=== PATIENT | male | born 1985 | race Caucasian/White ===

== ENCOUNTER 2018-10-01 15:22 | Emergency (ER) | payer BC ==
[2018-10-01] MEDS ORDERED: EPINEPHrine 1 MG/1 ML Amp ONE (15:33)
[2018-10-01] MEDS ORDERED: EPINEPHrine 1 MG/1 ML Amp SUBCUT ONE ×2 (15:35→16:14)
[2018-10-01] MEDS ORDERED: methylPREDNISolone Sodium Succinate 40 MG/1 ML SDV IM ONE (16:30)
--- NOTE | 2018-10-02 11:01 | EDM.PDOC ---
ED HPI GENERAL MEDICAL PROBLEM - General Chief Complaint: Bite:Animal, Insect Stated Complaint: bug bite, lip swelling Time Seen by Provider: 10/01/18 15:25 Source of Information: Reports: Patient - History of Present Illness INITIAL COMMENTS - FREE TEXT/NARRATIVE: Patient presented to ER complaining of a insect bite on lip. The lip was swollen. The right cheek was also swollen. Patient also had generalized hives. No respiratory stress noted. Patient came to ER to be evaluated. Onset: Sudden Severity: Moderate - Related Data Allergies Allergy/AdvReac Type Severity Reaction Status Date / Time No Known Allergies Allergy Verified 10/01/18 15:30 Past Medical History - Infectious Disease History Infectious Disease History: Reports: Chicken Pox, Shingles Social & Family History - Tobacco Use Smoking Status *Q: Never Smoker Second Hand Smoke Exposure: No - Caffeine Use Caffeine Use: Reports: Coffee - Recreational Drug Use Recreational Drug Use: No ED ROS GENERAL - Review of Systems Review Of Systems: See Below Constitutional: Reports: No Symptoms, Weight Gain Respiratory: Reports: No Symptoms Cardiovascular: Reports: No Symptoms Endocrine: Reports: No Symptoms GI/Abdominal: Reports: No Symptoms : Reports: No Symptoms Musculoskeletal: Reports: No Symptoms Skin: Reports: Other (generalized hives ; lip swollen/right cheek swollen) Neurological: Reports: No Symptoms Psychiatric: Reports: No Symptoms Hematologic/Lymphatic: Reports: No Symptoms Immunologic: Reports: No Symptoms ED EXAM, SKIN/RASH Exam: See Below Exam Limited By: No Limitations General Appearance: Alert, WD/WN, No Apparent Distress Ears: Normal External Exam, Normal Canal, Hearing Grossly Normal, Normal TMs Nose: Normal Inspection, Normal Mucosa, No Blood Throat/Mouth: Normal Inspection, Normal Lips, Normal Teeth, Normal Gums, Normal Oropharynx, Normal Voice, No Airway Compromise Head: Atraumatic, Normocephalic Neck: Normal Inspection, Supple, Non-Tender, Full Range of Motion Respiratory/Chest: No Respiratory Distress, Lungs Clear, Normal Breath Sounds, No Accessory Muscle Use, Chest Non-Tender Cardiovascular: Normal Peripheral Pulses, Regular Rate, Rhythm, No Edema, No Gallop, No JVD, No Murmur, No Rub GI/Abdominal: Normal Bowel Sounds, Soft, Non-Tender, No Organomegaly, No Distention, No Abnormal Bruit, No Mass Back Exam: Normal Inspection, Full Range of Motion, NT Extremities: Normal Inspection, Normal Range of Motion, Non-Tender, No Pedal Edema, Normal Capillary Refill Neurological: Alert, Oriented, CN II-XII Intact, Normal Cognition, Normal Gait, Normal Reflexes, No Motor/Sensory Deficits Skin: Other (generalized hives ; lip swollen/right cheek swollen) Location, Skin: Other (lip/right cheek ) Associated features: Swelling Course - Vital Signs Last Recorded V/S: Last Vital Signs Temp 98 F 10/01/18 15:23 Pulse 112 H 10/01/18 15:23 Resp 20 10/01/18 15:23 BP 141/78 H 10/01/18 15:23 Pulse Ox 96 10/01/18 15:23 - Orders/Labs/Meds Meds: Medications Discontinued Medications Generic Name Dose Route Start Last Admin Trade Name Torie PRN Reason Stop Dose Admin Epinephrine HCl Confirm 10/01/18 15:33 10/01/18 15:45 Adrenalin Administered 10/01/18 15:34 Not Given Dose 1 mg .ROUTE .STK-MED ONE Epinephrine HCl 0.3 mg 10/01/18 15:35 10/01/18 15:45 Adrenalin SUBCUT 10/01/18 15:36 0.3 mg ONETIME ONE Administration Epinephrine HCl 0.3 mg 10/01/18 16:14 10/01/18 16:15 Adrenalin SUBCUT 10/01/18 16:15 0.3 mg ONETIME ONE Administration Methylprednisolone Sodium Succinate 40 mg 10/01/18 16:30 10/01/18 16:40 Solu-Medrol IM 10/01/18 16:31 40 mg ONETIME ONE Administration Departure - Departure Time of Disposition: 17:50 Disposition: Home, Self-Care 01 Clinical Impression: Insect bite Qualifiers: Encounter type: initial encounter Site of insect bite: unspecified site Qualified Code(s): W57.XXXA - Bitten or stung by nonvenomous insect and other nonvenomous arthropods, initial encounter - Discharge Information *PRESCRIPTION DRUG MONITORING PROGRAM REVIEWED*: Not Applicable *COPY OF PRESCRIPTION DRUG MONITORING REPORT IN PATIENT MARVA: Not Applicable Instructions: Epinephrine injection, Methylprednisolone Solution for Injection , Insect Bite, Adult, [id number] Referrals: PCP,Unknown [Primary Care Provider] - Forms: ED Department Discharge Care Plan Goals: Instructions per Dr. Hickman. Follow Medrol dose pack instructions you DO NOT need to fiber picker a Medrol pack at the pharmacy. Follow up otherwise with your PCP as needed. Use ice to swollen, painful areas.
== END 2018-10-01 17:50 | disposition home or self-care (01) ==
LOC: LL.ED 15:22
DX: S00.561A Insect bite (nonvenomous) of lip, initial encounter (principal); S00.86XA Insect bite (nonvenomous) of other part of head, initial encounter; W57.XXXA Bitten or stung by nonvenomous insect and other nonvenomous arthropods, initial encounter
CPT/HCPCS: 96372; 99282; J0171; J2920